=== PATIENT | female | born 1990 | race Hispanic/Latino ===

== ENCOUNTER 2017-06-18 15:24 | Observation (INO) | payer OTHER, BC ==
[2017-06-18] MEDS ORDERED: Sodium Chloride 0.9% 1,000 ML IV STA (15:42)
[2017-06-18] MEDS ORDERED: Glucagon Recombinant 1 mg Inj IV STA ×2 (15:54→15:56)
--- NOTE | 2017-06-18 16:02 | ED PDOC ---
HPI: Chest Pain Time Seen by Provider: 06/18/17 15:31 Chief Complaint (Nursing): ENT Problem Chief Complaint (Provider): Chest Pain Current Symptoms Are (Timing): Still Present Severity: Moderate (Moderate - severe) Quality: "Pain" Associated Symptoms: Nausea Additional Complaint(s): Kaylyn Neal, a 27 year old female, presents to the ED with a sudden onset of chest pain. The patient states that the pain started around 1445 today while she was trying to swallow a piece of steak. She states that the pain is moderate to severe, midsternum and is radiating to her back. The patient states that she vomited twice with small pieces of steak seen in emesis. patient has severe nausea, and cannot tolerate her own saliva. She is also anxious, short of breath and lightheaded. PMD: [facility] Past Medical History Reviewed: Historical Data, Nursing Documentation, Vital Signs Vital Signs: Last Vital Signs Temp 98.6 F 06/18/17 20:25 Pulse 72 06/18/17 21:09 Resp 15 06/18/17 21:09 BP 127/81 06/18/17 21:09 Pulse Ox 100 06/18/17 21:51 - Medical History Other PMH: ADHD - Surgical History Surgical History: Appendectomy - Family History Family History: States: Unknown Family Hx - Social History Current smoker - smoking cessation education provided: Yes Ex-Smoker (has not smoked in the last 12 months): Yes - Home Medications Home Medications: Ambulatory Orders Medication Instructions Recorded Dextroamphetamine/Amphetamine 10 mg PO DAILY 06/18/17 [Adderall 10 mg Tablet] Pantoprazole Sodium [Protonix] 40 mg PO BID #60 tablet. 06/18/17 - Allergies Allergies/Adverse Reactions: Allergies Allergy/AdvReac Type Severity Reaction Status Date / Time No Known Allergies Allergy Verified 06/18/17 15:26 Review of Systems ROS Statement: Except As Marked, All Systems Reviewed And Found Negative Cardiovascular: Positive for: Chest Pain (Midsternum chest pain), Light Headedness Respiratory: Positive for: Shortness of Breath Psych: Positive for: Anxiety Physical Exam - Reviewed Nursing Documentation Reviewed: Yes Vital Signs Reviewed: Yes - Physical Exam Appears: Positive for: Uncomfortable, In Acute Distress Head Exam: Positive for: ATRAUMATIC, NORMAL INSPECTION, NORMOCEPHALIC Skin: Positive for: Normal Color, Warm, Dry Eye Exam: Positive for: Normal appearance, PERRL ENT: Positive for: Other (Tacky mucous membranes). Negative for: Normal ENT Inspection Neck: Positive for: Normal, Painless ROM, Supple Cardiovascular/Chest: Positive for: Regular Rate, Rhythm. Negative for: Murmur , Tachycardia Respiratory: Positive for: Normal Breath Sounds. Negative for: Rhonchi, Wheezing, Respiratory Distress Gastrointestinal/Abdominal: Positive for: Normal Exam, Bowel Sounds, Soft. Negative for: Tenderness, Mass, Guarding, Rebound Back: Positive for: Normal Inspection. Negative for: L CVA Tenderness, R CVA Tenderness Extremity: Positive for: Normal ROM. Negative for: Tenderness, Pedal Edema, Deformity, Swelling Neurologic/Psych: Positive for: Alert, Oriented, Mood/Affect (Anxious affect) - Laboratory Results Result Diagrams: 06/18/17 15:50 06/18/17 15:50 - ECG O2 Sat by Pulse Oximetry: 100 (RA) Pulse Ox Interpretation: Normal - Radiology X-Ray: Interpreted by Tn X-Ray Interpretation: No Acute Disease - Progress ED Course And Treament: [address] Hebert GI. Pt to be given glucagon but also anticipate possible endoscopy for food impaction removal. DAVID Jansen Hospitalist/[facility] for hospitalization. 1645p Labs demonstrate hypokalemia. IV supplementation ordered. 1730 Pt feels better. She reports that during evaluation by Dr Jansen, she acutely felt more pain and then vomited large amount and felt better. Markedly improvement in distress and tachycardia. Will observe for a in ER and if continues to be comfortable, will be discharged. Pt is eager to go home. DW Dr Jansen and Dr Hebert. 1800 Pt continues to be comfortable 1845 Pt reports pain and inability to tolerate secretions. Called Dr Hebert and Dr Jansen back and pt to go for endoscopy emergently for removal of food bolus. DW pt plan of care. - Critical Care Total Time (In Min): 30 Documented Critical Care: Time excludes all time spent performint seperately billable procedures Disposition - Clinical Impression Clinical Impression: Food impaction of esophagus, Hypokalemia Counseled Patient/Family Regarding: Studies Performed, Diagnosis, Need For Followup - Disposition Disposition Time: 17:30 Condition: FAIR - Pt Status Changed To: Hospital Disposition Of: Observation - POA Present On Arrival: None
[2017-06-18 16:04] LABS: BASO # 0.1 K/uL (0.0-0.2); BASO % 1.1 % (0.0-2.0); EOS # 0.2 K/uL (0.0-0.7); EOS % 3.2 % (0.0-4.0); HEMOGLOBIN 15.3 g/dL (12.0-16.0); LYMPH # 2.7 K/uL (1.0-4.3); LYMPH % 43.1 % (20.0-40.0); MEAN CELL VOLUME 93.9 fl (81.0-99.0); MEAN CORPUSCULAR HEMOGLOBIN 31.9 pg (27.0-31.0); MEAN CORPUSCULAR HGB CONC 33.9 g/dL (33.0-37.0); MONO # 0.5 K/uL (0.0-0.8); MONO % 7.5 % (0.0-10.0); NEUT # 2.8 K/uL (1.8-7.0); NEUT % 45.1 % (50.0-75.0); RBC 4.8 Mil/uL (3.80-5.20); RED CELL DISTRIBUTION WIDTH 13.2 % (11.5-14.5); WHITE BLOOD COUNT 6.2 K/uL (4.8-10.8)
[2017-06-18] MEDS ORDERED: Glucagon Recombinant 1 mg Inj ONE ×3 (16:07→18:45)
[2017-06-18 16:14] LABS: ALBUMIN 5.4 g/dL (3.5-5.0); ALT/SGPT 29 U/L (9-52); AST/SGOT 20 U/L (14-36); BLOOD UREA NITROGEN 12 mg/dl (7-17); CALCIUM 10.5 mg/dL (8.4-10.2); GFR AFRICAN-AMERICAN > 60; GFR NON-AFRICAN AMERICAN > 60
[2017-06-18 16:27] LABS: ALB/GLOB RATIO 1.5 (1.0-2.1)
[2017-06-18 16:42] LABS: PROTHROMBIN TIME 11.6 Seconds (9.8-13.1)
[2017-06-18 16:43] LABS: INR 1.1 (0.9-1.2); PARTIAL THROMBOPLASTIN TIME 25.2 Seconds (25.6-37.1)
[2017-06-18] MEDS ORDERED: Potassium CL 10mEq/100ml 100 ML IVPB ONE (16:46)
--- NOTE | 2017-06-18 17:30 | CP.PCM.HP ---
History of Present Illness - History of Present Illness History of Present Illness: 27 year old female with PMH ADHD presented with sudden onset of chest pain.As per patient she was eating and trying to swallow a piece of steak around 3 PM and she felt like something got stuck in her mid chest. She is complaining of constant severe mid sternal chest pain radiating to the back associated with few episodes of vomiting in ER with undigested pieces of steak seen in the vomit . She is very anxious , tachycardic . She states she is very healthy individual. Allergies ; NKDA PMH: ADHD Medication ; Aderall Surgery ; appendectomy Family history : None Social history ; ex smoker , denies ETOh or drug abuse, lives in [place], multimedia developer worker ROs ; 10 point review of system negative except above Present on Admission - Present on Admission Any Indicators Present on Admission: No Review of Systems - Review of Systems All systems: reviewed and no additional remarkable complaints except Past Patient History - Past Social History Smoking Status: Never Smoked - PSYCHIATRIC Hx Substance Use: No - SURGICAL HISTORY Hx Appendectomy: Yes Meds Allergies/Adverse Reactions: Allergies Allergy/AdvReac Type Severity Reaction Status Date / Time No Known Allergies Allergy Verified 06/18/17 15:26 Physical Exam - Constitutional Appears: In Acute Distress (mild distress critsi vomiting episodes and midsternal chest pain ) - Head Exam Head Exam: ATRAUMATIC, NORMAL INSPECTION, NORMOCEPHALIC - Eye Exam Eye Exam: EOMI, Normal appearance, PERRL Pupil Exam: NORMAL ACCOMODATION - ENT Exam ENT Exam: Mucous Membranes Moist, Normal Exam - Neck Exam Neck exam: Positive for: Normal Inspection - Respiratory Exam Respiratory Exam: Clear to Auscultation Bilateral, NORMAL BREATHING PATTERN. absent: Rales, Rhonchi, Wheezes - Cardiovascular Exam Cardiovascular Exam: REGULAR RHYTHM, RRR, +S1, +S2. absent: JVD - GI/Abdominal Exam GI & Abdominal Exam: Normal Bowel Sounds, Soft. absent: Distended, Guarding, Rebound, Tenderness - Rectal Exam Rectal Exam: Deferred - Extremities Exam Extremities exam: Positive for: normal capillary refill, normal inspection, pedal pulses present. Negative for: calf tenderness, pedal edema - Back Exam Back exam: NORMAL INSPECTION - Neurological Exam Neurological exam: Alert, CN II-XII Intact, Oriented x3 - Psychiatric Exam Psychiatric exam: Anxious - Skin Skin Exam: Dry, Intact, Normal Color, Warm Results - Vital Signs Recent Vital Signs: Last Vital Signs Temp 97.4 F L 06/18/17 15:26 Pulse 101 H 06/18/17 15:26 Resp 16 06/18/17 15:26 BP 143/91 H 06/18/17 15:26 Pulse Ox 100 06/18/17 16:35 - Labs Result Diagrams: 06/18/17 15:50 06/18/17 15:50 - EKG Data EKG Interpreted by: Other (incomplete RBBB) EKG shows normal: Sinus rhythm Rate: Normal - Imaging and Cardiology Chest x-ray Additional comment: no acute pathology Assessment & Plan - Assessment and Plan (Free Text) Assessment: 27 year old female with PMH ADHD presented with sudden onset of chest pain.As per patient she was eating and trying to swallow a piece of steak around 3 PM and she felt like something got stuck in her mid chest. She is complaining of constant severe mid sternal chest pain radiating to the back associated with few episodes of vomiting in ER with undigested pieces of steak seen in the vomit . She is very anxious , tachycardic . She states she is very healthy individual. Decision was made to admit patient to med/surg for possible EGD for foreign body removal from esophagus .Glucagon IV was given and patient was able to have vomiting episode and able to vomit more of undigested food particles.She is feeling well, pain resolved , hemodynamically stable, and wants to go home. Patient to be discharged home from ER
[2017-06-18] MEDS ORDERED: Lactated Ringer's 1,000 ML IV ONE (19:47)
[2017-06-18] MEDS ORDERED: Propofol 10 mg/ml Inj (20 ML) ONE (19:56)
[2017-06-18] MEDS ORDERED: Lactated Ringer's 500 ML IV SCH (20:30)
[2017-06-18 22:26] VITALS: RESP 20
[2017-06-19 00:09] VITALS: BP 132/76; PULSE 78; TEMP 98.1; O2SAT 98
--- NOTE | 2017-06-19 07:39 | CARD ---
APPROVED REPORT EKG Measurement Heart [id number] <Conclusion> Normal sinus rhythm Possible Left atrial enlargement Rightward axis Borderline ECG
--- NOTE | 2017-06-19 08:17 | RAD ---
HISTORY: chest pain COMPARISON: No prior. FINDINGS: LUNGS: No active pulmonary disease. PLEURA: No significant pleural effusion identified, no pneumothorax apparent. CARDIOVASCULAR: Normal. OSSEOUS STRUCTURES: No significant abnormalities. VISUALIZED UPPER ABDOMEN: Normal. OTHER FINDINGS: None. IMPRESSION: No active disease.
--- NOTE | 2017-06-19 08:17 | CON ---
DATE: 06/18/2017 REFERRING PHYSICIAN: . REASON FOR CONSULTATION: Infection. HISTORY OF PRESENT ILLNESS: This is a pleasant 27-year-old female with a history of steak getting stuck, had never had this problem before. The patient had stokes with steak, felt like it stuck, she vomited up all that and then on the way out to the door to go home, she could not tolerate saliva, so GI was called. PAST MEDICAL HISTORY: As above. PAST SURGICAL HISTORY: As above. MEDICATIONS: Have been reviewed. REVIEW OF SYSTEMS: All other systems have been reviewed and negative apart from the HPI. PHYSICAL EXAMINATION: VITAL SIGNS: In the hospital, grossly unremarkable. GENERAL: Pleasant, young female, lying in bed comfortably, in no apparent distress. HEENT: Head is normocephalic and atraumatic. Eyes; pupils equal, round, and reactive to light bilaterally. No conjunctival pallor or icterus. NECK: Supple. Normal range of motion. No lymphadenopathy appreciated. LUNGS: Coarse breath sounds bilaterally. HEART: S1 and S2, regular rate and rhythm. No murmurs appreciated. ABDOMEN: Soft and nontender. Bowel sounds present. No rebound. No guarding. RECTAL: Deferred. EXTREMITIES: Pulses felt bilaterally. SKIN: Warm, dry, and intact. NEUROLOGIC: A and O x3. LABORATORY DATA: All labs and all the radiology have been reviewed. Labs include WBC of 6.2, potassium 3.1. ASSESSMENT PLAN: This is a 27-year-old female with food infection. Plan for urgent endoscopy. Thank you for the consult. Jonas Hebert MD/ PhD MTDD
== END 2017-06-18 23:00 | disposition home or self-care (01) ==
LOC: H.ER 15:24 → H.ERHOLD 16:04 → H.MEDSURG1 21:34
PROVIDERS: ADMIT Hospitalist; ATTEND Hospitalist
DX: T18.128A Food in esophagus causing other injury, initial encounter (principal); E87.6 Hypokalemia; F90.9 Attention-deficit hyperactivity disorder, unspecified type; X58.XXXA Exposure to other specified factors, initial encounter; Y92.9 Unspecified place or not applicable; F17.200 Nicotine dependence, unspecified, uncomplicated